=== PATIENT | female | born 1985 | race Two or more races ===

== ENCOUNTER 2018-03-20 00:23 | Emergency (ER) | payer MEDICAID ==
[~2018-03-20] VITALS: Ht 154.9 cm; Wt 72.6 kg
--- NOTE | 2018-03-20 00:54 | NUR ---
Patient discharged to home in stable conditon. Written and verbal after care instructions given. Patient verbalizes understanding of instructions. Pt ambulated out of ER in steady gait. All belongings with pt. VSS. NAD noted.
[2018-03-20 00:56] VITALS: BP 114/76
== END 2018-03-20 00:58 | disposition home or self-care (01) ==
LOC: ER 00:30
DX: B37.2 Candidiasis of skin and nail (principal); Z88.5 Allergy status to narcotic agent; Z88.8 Allergy status to other drugs, medicaments and biological substances; Z90.49 Acquired absence of other specified parts of digestive tract
CPT/HCPCS: 99283; A4663